=== PATIENT | female | born 1955 | race Asian ===

== ENCOUNTER 2023-11-29 17:24 | Emergency (ER) | payer OTHER, SELFPAY ==
[2023-11-29 17:34] VITALS: BP 114/67
[2023-11-29 17:53] LABS: % Basophils 0.6 % (0-2); % Eosinophils 9.3 % (0-6); % Lymphocytes 33.5 % (20.5-51.1); % Monocytes 7.6 % (1.7-9.3); Absolute Eosinophils 0.4 10^3/uL (0-0.7); Absolute Lymphocytes 1.6 10^3/uL (1.2-3.4); Absolute Monocytes 0.4 10^3/uL (0.1-0.6); Absolute Neutrophils 2.3 10^3/uL (1.4-6.5); Hemoglobin 12.5 g/dL (12.0-16.0); Mean Corp Hgb Conc. 32.1 g/dL (33.0-37.0); Mean Corpuscular Hgb 28.3 pg (27.0-31.0); Mean Corpuscular Volume 88.4 fL (81.0-99.0); Mean Platelet Volume 10.4 fL (7.4-10.4); Nucleated Red Blood Cells % 0 %; Platelet Count 141 10^3/uL (130-400); Red Blood Cell Count 4.41 10^6/uL (4.20-5.40); Red Cell Dist. Width 13.2 % (11.5-14.5); White Blood Cell Count 4.7 10^3/uL (4.8-10.8)
[2023-11-29 18:10] LABS: ALT (SGPT) 20 U/L (0-35); AST (SGOT) 35 U/L (14-36); Albumin 3.9 g/dl (3.5-5.0); Alkaline Phosphatase 69 U/L (38-126); Blood Urea Nitrogen 13 mg/dl (7-17); Carbon Dioxide 26 mmol/L (22-30); Chloride 105 mmol/L (98-107); Glucose 132 mg/dl (70-99); Potassium 3.8 mmol/L (3.5-5.1); Sodium 137 mmol/L (135-145); Total Bilirubin 0.7 mg/dl (0.2-1.3); Total Protein 7.1 g/dl (6.3-8.2); eGFR > 60.00
[2023-11-29 18:17] LABS: Troponin I < 0.012 ng/ml
[2023-11-29 21:45] LABS: INR 1.96; PT 22.5 Sec (11.4-14.6)
[2023-11-29 23:07] VITALS: BP 140/92
--- NOTE | 2023-11-29 23:56 | ED.GENMED ---
History of Present Illness
General
Chief Complaint: Cough
Source: patient and family
Exam Limitations: none
Time Seen by Provider: 11/29/23 20:31
Nursing documentation reviewed up to this point in time: agreed with
Travel History
Have you had any contact with someone who has COVID-19?: No
Do you have any symptoms of coronavirus? Fever > 100 degrees, chills, cough, shortness of breath, sore throat, loss of taste or smell, muscle aches, or headache?: No
History of Present Illness
History of Present Illness:
67-year-old female with past medical history of diabetes hypertension hyperlipidemia, valve disorder currently on Coumadin also history of A-fib presenting to the emergency department today with concerns of cough over the past week. Initially had
fevers but now has resolved sore throat initially now resolved. Denies specific chest pain other than occasionally with coughing.
Past History
Past History
ED Past Medical History: None
ED Past Surgical History: None
Review of Systems
Review of Systems
Allergies reviewed?: Yes
All Other Systems: ROS reviewed and negative except as documented in HPI and ROS
Phy Exam
Physical Exam
Physical Exam:
GENERAL: Alert , in no apparent distress
EYE: pupils equal and reactive
NECK: Supple, no significant adenopathy.
ENT: o/p clr, mmm.
CARDIAC: Regular rate and rhythm .
LUNGS: Clear breath sounds bilaterally, no acute respiratory distress, no wheezes/rales/rhonchi
ABDOMEN: Soft, without focal tenderness, no r/g, no cvat
NEUROLOGICAL: Alert and oriented, no focal neuro deficits
SKIN: Warm and dry, skin intact.
MUSCULOSKELETAL: No edema, well perfused.
PSYCH: Normal and appropriate interaction.
Course
Orders/Labs/Results
Orders:
Orders
11/29/23 17:36
Electrocardiogram (*1) Urgent
Reason for Study: Chest Pain
EKG- Treatment ONCE
11/29/23 17:47
Complete Blood Count/With Diff Urgent
Comprehensive Metabolic Panel Urgent
Troponin I Urgent
11/29/23 20:28
Chest [CR Chest - 2 Views ] Urgent
Comment:
Reason For Exam: cough
11/29/23 21:14
Add On- LAB Urgent
Tests Added?: pt inr
11/29/23 21:28
PT/INR [Prothrombin Time] Urgent
Abnormal Lab Results
11/29/23 11/29/23
17:47 21:28
WBC 4.7 L 10^3/uL
(4.8-10.8)
MCHC 32.1 L g/dL
(33.0-37.0)
Eosinophils % 9.3 H %
(0-6)
PT 22.5 H Sec
(11.4-14.6)
Glucose 132 H mg/dl
(70-99)
11/29/23 17:47
11/29/23 17:47
Vital Signs
Initial and Last Documented VS:
Initial Vital Signs
Temp Pulse Resp BP Pulse Ox
98.9 F 77 19 114/67 99
11/29/23 17:34 11/29/23 17:34 11/29/23 17:34 11/29/23 17:34 11/29/23 17:34
Last Documented Vital Signs
Temp Pulse Resp BP Pulse Ox
98.2 F 75 18 140/92 97
11/29/23 23:07 11/29/23 23:07 11/29/23 23:07 11/29/23 23:07 11/29/23 23:07
MDM/Problems Addressed
MDM/Problems Addressed:
67-year-old female presenting to the emergency department today with concerns of cough over the past week here vital signs are normal patient well-appearing no acute distress lungs are clear labs unremarkable chest x-ray without signs of pneumonia
EKG showing A-fib but does have a history of a flutter currently on Coumadin. INR level was 1.96 patient was notified of this will follow-up closely for further assessment and monitoring.
*Critical Care Note
Total Time (30-74mins, 75-104mins- exclusive of procedures): Not Applicable
ED Attending Note
-
Portions of this chart may have been created with voice recognition software.� Occasional wrong word or��sound alike� substitutions may have occurred due to the inherent limitations of voice recognition software.
Discharge Plan
Departure
Patient Disposition: Home (Routine Discharge)
Date of Disposition: 11/29/23
Time of Disposition: 23:56
Patient with high blood pressure during this ER visit?: No
Condition: Good
Covid-19: Not Applicable
Discharge Problem:
Acute bronchitis
Instructions: Acute Bronchitis, Adult (DC)
Prescriptions:
No Action
fluticasone propionate [Flonase Allergy Relief] 50 mcg/actuation spray,suspension
2 spray intranasal DAILY Qty: 16 0RF
Referrals:
Shania Villa [Other]
Laury Jose MD [Family Provider] -
Activity Restrictions/Additional Instructions:
You can to the emergency department today with concerns of ongoing cough.. Reassuring evaluation. Please follow close with the primary care doctor. Return to the emergency department for any worsening, new or concerning symptoms.
Interventions
Interventions:
*General Assessment Last Done: 11/29/23 17:35
ED- Fall Risk Assessment Last Done: 11/29/23 20:55
*ED COVID-19 Vaccine History Last Done: 11/29/23 17:35
ED- Pulmonary Assessment Last Done: 11/29/23 20:55
Discharge Date and Time
Print Language: CAMBODIAN
== END 2023-11-30 00:11 | disposition home or self-care (01) ==
LOC: EMR 17:24
PROVIDERS: Physician Assistant; Student in an Organized Health Care Education/Training Program; EMERGENCY PHYSICIAN Emergency Medicine; FAMILY PHYSICIAN Emergency Medicine
DX: J20.9 Acute bronchitis, unspecified (principal); E11.9 Type 2 diabetes mellitus without complications; I10 Essential (primary) hypertension; E78.5 Hyperlipidemia, unspecified; Z79.01 Long term (current) use of anticoagulants
CPT/HCPCS: 99285; 71046; 80053; 84484; 85025; 85610; 93005

== ENCOUNTER 2024-10-27 12:31 | Emergency (ER) | payer OTHER, SELFPAY ==
[2024-10-27 12:32] VITALS: BP 130/84
[2024-10-27 13:02] LABS: % Basophils 0.9 % (0-2); % Eosinophils 8.6 % (0-6); % Immature Granulocytes 0.1 % (0-0.5); % Lymphocytes 23.6 % (20.5-51.1); % Neutrophils 59.8 % (42.2-75.2); Absolute Basophils 0.1 10^3/uL (0-0.2); Absolute Eosinophils 0.6 10^3/uL (0-0.7); Absolute Lymphocytes 1.6 10^3/uL (1.2-3.4); Absolute Monocytes 0.5 10^3/uL (0.1-0.6); Hematocrit 41.6 % (37.0-47.0); Hemoglobin 13.7 g/dL (12.0-16.0); Mean Corp Hgb Conc. 32.9 g/dL (33.0-37.0); Mean Corpuscular Hgb 28.6 pg (27.0-31.0); Mean Corpuscular Volume 86.8 fL (81.0-99.0); Mean Platelet Volume 10.7 fL (7.4-10.4); Nucleated Red Blood Cells % 0 %; Platelet Count 218 10^3/uL (130-400); Red Blood Cell Count 4.79 10^6/uL (4.20-5.40); Red Cell Dist. Width 12.9 % (11.5-14.5); White Blood Cell Count 6.7 10^3/uL (4.8-10.8)
[2024-10-27 13:17] LABS: ALT (SGPT) 19 U/L (0-35); AST (SGOT) 32 U/L (14-36); Albumin 4.2 g/dl (3.5-5.0); Alkaline Phosphatase 87 U/L (38-126); Blood Urea Nitrogen 19 mg/dl (7-17); Calcium 9.4 mg/dl (8.4-10.2); Carbon Dioxide 26 mmol/L (22-30); Chloride 104 mmol/L (98-107); Glucose 99 mg/dl (70-99); Lipase 95 U/L (23-300); Potassium 4.4 mmol/L (3.5-5.1); Sodium 138 mmol/L (135-145); eGFR > 60.00
[2024-10-27 13:28] LABS: Troponin I < 0.012 ng/ml
--- NOTE | 2024-10-27 13:38 | ED.GENMED ---
History of Present Illness
General
Chief Complaint: Abdominal Symptoms
Source: patient and family
Time Seen by Provider: 10/27/24 13:08
History of Present Illness
History of Present Illness:
68-year-old female, Wolof speaking with translation done via patient's daughter (declined language line), who presents to the emergency department for evaluation of upper abdominal pain described to be centrally located, dull, nonradiating, worse
with eating and accompanied with mild fatigue and poor appetite. Patient has had multiple episodes over the course of 2 years, today seems a little bit different but patient is unable to quantify how it is different. She has not had any reported
nausea or vomiting and notes that she has taken some famotidine for the last 2 nights without much relief. Denies any chest pain or shortness of breath, no urinary symptoms or bowel changes. No other concerns at this time.
Past History
Past History
ED Past Medical History: Arrthythmia, HTN, Hypercholesterolemia, NIDDM and Valvular disease
ED Past Surgical History: Cardiac
Social History
Tobacco: Non-smoker
Alcohol: None
Drug: None
Personal:
Living: with family
Review of Systems
Review of Systems
All Other Systems: ROS reviewed and negative except as documented in HPI and ROS
Phy Exam
Physical Exam
Physical Exam:
GENERAL: Alert , in no apparent distress
EYE: clear conjunctiva b/l
HEAD: NCAT
ENT: mmm.
CARDIAC: Regular rate and rhythm .
LUNGS: Clear breath sounds bilaterally, no acute respiratory distress, no wheezes/rales/rhonchi
ABDOMEN: Soft, non-distended, without focal tenderness, no r/g, no cvat, negative Infante sign, no tenderness at McBurney's point
NEUROLOGICAL: Alert and oriented
SKIN: Warm and dry, skin intact.
MUSCULOSKELETAL: well perfused.
PSYCH: Normal and appropriate interaction.
Scores
Heart Failure Risk
Heart Failure Risk Score: Not Applicable
Heart Score for Chest Pain Patients
STEMI patient?: Not applicable
Withdrawal Assessment of Alcohol
Withdrawal Assessment Completed?: Not applicable
Course
Orders/Labs/Results
Orders:
Orders
10/27/24 12:37
Electrocardiogram (*1) Urgent
Reason for Study: Chest Pain
EKG- Treatment ONCE
10/27/24 12:47
Complete Blood Count/With Diff Urgent
Comprehensive Metabolic Panel Urgent
Lipase Urgent
Troponin I Urgent
10/27/24 13:28
Mag Hydrox/Al Hydrox/Simeth [Maalox] 30 ml Phenobarb/Hyoscy/Atropine/Scop [] 10 ml Viscous Lidocaine 2% [Xylocaine Viscous Cup] 10 ml PO NOW
US Abdomen Complete/Upper Urgent
Comment:
Reason For Exam: upper abd pain
10/27/24 13:49
Mag Hydrox/Al Hydrox/Simeth [Maalox] 30 ml .ROUTE .STK-MED ONE
Phenobarb/Hyoscy/Atropine/Scop [] 10 ml .ROUTE .STK-MED ONE
Viscous Lidocaine 2% [Xylocaine Viscous Cup] 15 ml .ROUTE .STK-MED ONE
Abnormal Lab Results
10/27/24
12:47
MCHC 32.9 L g/dL
(33.0-37.0)
MPV 10.7 H fL
(7.4-10.4)
Eosinophils % 8.6 H %
(0-6)
BUN 19 H mg/dl
(7-17)
10/27/24 12:47
10/27/24 12:47
Vital Signs
Initial and Last Documented VS:
Initial Vital Signs
Temp Pulse Resp BP Pulse Ox
97.6 F 78 20 130/84 100
10/27/24 12:32 10/27/24 12:32 10/27/24 12:32 10/27/24 12:32 10/27/24 12:32
Last Documented Vital Signs
Temp Pulse Resp BP Pulse Ox
97.6 F 78 20 130/84 100
10/27/24 12:32 10/27/24 12:32 10/27/24 12:32 10/27/24 12:32 10/27/24 12:32
MDM/Problems Addressed
Differential Diagnosis Includes:
GERD, gastritis, peptic ulcer disease, symptomatic cholelithiasis, cholecystitis, pancreatitis, atypical ACS presentation
MDM/Problems Addressed:
68-year-old female presenting to the emergency department for evaluation of upper abdominal discomfort over the last few days, worse when eating, no nausea or vomiting. Presently out pain. No focal tenderness on exam. Hemodynamically stable.
Will check labs, ultrasound and treat GI cocktail. EKG and troponin ordered given patient's cardiac history but there is no evidence for ischemia and patient does have a negative troponin. Reassessment following.
Chronic conditions affecting care: Arrhythmia
*Radiology
Radiology exam reviewed: radiology read reviewed
*Pulse Oximetry
Patient hypoxic: no
*EKG
Interpreted by ED Provider?: Yes
Heart Rate: 72
Rhythm: atrial flutter
Foster: normal axis
Ischemia: other (T wave inversions lateral leads)
*Critical Care Note
Total Time (30-74mins, 75-104mins- exclusive of procedures): Not Applicable
Data Reviewed
Review of Other/Old Records Reveals: Labs and Records
Patient Management
Escalation/DeEscalation of care consider admission/obs:
Patient's ultrasound shows cholelithiasis but no evidence for acute cholecystitis. She is afebrile, no leukocytosis, normal LFTs. Patient's symptoms improved at this time. I discussed these results with patient's daughter who again provided
translation. Encouraged low-fat diet, smaller meals. Provided with information for general surgery to follow-up with. Advised on return precautions to the ER. Stable for discharge home.
ED Attending Note
-
Portions of this chart may have been created with voice recognition software.� Occasional wrong word or��sound alike� substitutions may have occurred due to the inherent limitations of voice recognition software.
Discharge Plan
Departure
Patient Disposition: Home (Routine Discharge)
Date of Disposition: 10/27/24
Time of Disposition: 16:11
Patient with high blood pressure during this ER visit?: No
Discharge Problem:
Cholelithiasis
Instructions: Gallstones - Discharge instructions
Prescriptions:
No Action
fluticasone propionate [Flonase Allergy Relief] 50 mcg/actuation spray,suspension
2 spray intranasal DAILY Qty: 16 0RF
Referrals:
Laury Jose MD [Family Provider] -
Jay Jay Warner MD [Active] - (General Surgery - Call for appointment)
Interventions
Interventions:
*Risk Screen - Suicide Last Done: 10/27/24 12:32
*General Assessment Last Done: 10/27/24 12:32
NE-Udploc-Uuefdleseb Assessment Last Done: 10/27/24 13:57
Discharge Date and Time
Print Language: UZBEK
[2024-10-27] MEDS: MAALOX 50 PO (13:53)
== END 2024-10-27 16:24 | disposition home or self-care (01) ==
LOC: EMR 12:31
PROVIDERS: Emergency Medicine; EMERGENCY PHYSICIAN Student in an Organized Health Care Education/Training Program; FAMILY PHYSICIAN Emergency Medicine
DX: K80.20 Calculus of gallbladder without cholecystitis without obstruction (principal); I10 Essential (primary) hypertension; E78.00 Pure hypercholesterolemia, unspecified; E11.9 Type 2 diabetes mellitus without complications; I38 Endocarditis, valve unspecified
CPT/HCPCS: 99284; 76700; 80053; 83690; 84484; 85025; 93005

== ENCOUNTER 2024-12-09 11:15 | Emergency (ER) | payer OTHER, SELFPAY ==
[2024-12-09] VITALS (11 sets, daily range): BP systolic 97–154; BP diastolic 55–104
[2024-12-09 11:43] LABS: % Basophils 0.5 % (0-2); % Eosinophils 3.1 % (0-6); % Immature Granulocytes 0.5 % (0-0.5); % Lymphocytes 11.3 % (20.5-51.1); % Neutrophils 77.6 % (42.2-75.2); Absolute Basophils 0.1 10^3/uL (0-0.2); Absolute Eosinophils 0.3 10^3/uL (0-0.7); Absolute Immature Granulocytes 0.1 10^3/uL (0-0.05); Absolute Lymphocytes 1.2 10^3/uL (1.2-3.4); Absolute Monocytes 0.8 10^3/uL (0.1-0.6); Absolute Neutrophils 8.5 10^3/uL (1.4-6.5); Hematocrit 44.9 % (37.0-47.0); Hemoglobin 14.6 g/dL (12.0-16.0); Mean Corp Hgb Conc. 32.5 g/dL (33.0-37.0); Mean Corpuscular Hgb 28.8 pg (27.0-31.0); Mean Corpuscular Volume 88.6 fL (81.0-99.0); Nucleated Red Blood Cells % 0 %; Platelet Count 245 10^3/uL (130-400); Red Blood Cell Count 5.07 10^6/uL (4.20-5.40); Red Cell Dist. Width 13.2 % (11.5-14.5); White Blood Cell Count 10.9 10^3/uL (4.8-10.8)
[2024-12-09 11:55] LABS: INR 1.49; PT 18.3 Sec (11.4-14.6)
[2024-12-09 12:23] LABS: ALT (SGPT) 38 U/L (0-35); AST (SGOT) 40 U/L (14-36); Albumin 4.5 g/dl (3.5-5.0); Alkaline Phosphatase 110 U/L (38-126); Blood Urea Nitrogen 13 mg/dl (7-17); Calcium 9.9 mg/dl (8.4-10.2); Carbon Dioxide 26 mmol/L (22-30); Chloride 101 mmol/L (98-107); Estimated Creatinine Clearance 64 ml/min; Glucose 124 mg/dl (70-99); Lipase 79 U/L (23-300); Potassium 4.9 mmol/L (3.5-5.1); Sodium 139 mmol/L (135-145); Total Bilirubin 1.5 mg/dl (0.2-1.3); Total Protein 8.9 g/dl (6.3-8.2); eGFR > 60.00
[2024-12-09] MEDS: NSS 1000 IV (12:23)
--- NOTE | 2024-12-09 12:55 | ED.GENMED ---
History of Present Illness
General
Chief Complaint: Abdominal Pain
Source: patient and family (Patient's daughter at bedside who was assisting with translation)
Exam Limitations: none
Time Seen by Provider: 12/09/24 11:41
Nursing documentation reviewed up to this point in time: agreed with
History of Present Illness
History of Present Illness:
Patient is a 69-year-old female with history atrial fibrillation on warfarin, hypertension, hyperlipidemia, diabetes currently postop day 8 from cholecystectomy presenting to the emergency department with worsening abdominal pain. Patient's
daughter at bedside who lives with patient and is assisting with translation. She reports that surgery was performed at [facility] and was uncomplicated. Patient was recovering well until few days ago when her abdominal pain worsened. Patient
reports diffuse severe abdominal pain, now with mild shortness of breath. Patient denies any fever, chills, chest pain, or urinary symptoms. Patient has been dealing with constipation following surgery which she believes to be due to
Tylenol/Motrin. Her last bowel movement is 2 days ago.
Patient has not yet contacted her surgeon regarding this pain.
Past History
Past History
ED Past Medical History: Arrthythmia, HTN, Hypercholesterolemia, NIDDM and Valvular disease
ED Past Surgical History: Cardiac
Social History
Tobacco: Non-smoker
Alcohol: None
Drug: None
Personal:
Living: with family
Review of Systems
Review of Systems
Allergies reviewed?: Yes
All Other Systems: ROS reviewed and negative except as documented in HPI and ROS
Phy Exam
Physical Exam
Physical Exam:
Vitals: Hypertensive, otherwise vital signs stable. Afebrile
General: Patient is mildly uncomfortable due to pain.
Skin: Warm and dry, well-healing laparoscopic surgical scars on abdomen with surrounding ecchymoses
Head: Normocephalic, atraumatic
Eyes: Sclera nonicteric.
Throat: Protecting airway
Neck: Normal ROM
Cardiac: Regular rate and rhythm, no murmurs.
Pulm: Normal respiratory effort, no wheezes, rales, rhonchi heard on exam.
Abdomen: Mildly distended. Abdomen moderately tender diffusely, most significant in right upper quadrant with guarding.
Extremities: No evidence of cyanosis or edema. Palpable DP pulses
Neuro: AAOx3. Grossly intact.
Psychiatric: Normal affect.
Course
Orders/Labs/Results
Orders:
Orders
12/09/24 11:29
IV Insert/Care/Rem.- Treatment PRN
12/09/24 11:32
Complete Blood Count/With Diff Urgent
Comprehensive Metabolic Panel Urgent
Lipase Urgent
PT/INR [Prothrombin Time] Urgent
12/09/24 11:53
Electrocardiogram (*1) Urgent
Reason for Study: Shortness of Breath
EKG- Treatment ONCE
0.9% Sodium Chloride 1000 ml [Nss] 1,000 ml IV BOLUS
12/09/24 11:54
CR Chest - 2 Views Urgent
Comment:
Reason For Exam: SOB, abdominal pain
12/09/24 11:55
CT Abd/pelvis W Iv Cont Urgent
Comment: s/p CCY 12/01/24
Reason For Exam: Diffuse abdominal pain, +distention
12/09/24 12:33
Lactic Acid Q4H
Comment: CANCEL 2nd LACTIC ACID IF 1st LACTIC ACID IS LESS THAN 2
12/09/24 12:48
UA Reflex to Culture [Urinalysis Reflex To Culture] Urgent
Date Specimen was Collected: 12/09/24
Time Specimen was Collected: 12:46
12/09/24 14:50
Morphine Sulfate 4 mg IV NOW STA
Ondansetron Injectable [Zofran] 4 mg IV NOW STA
12/09/24 14:52
Morphine Sulfate 4 mg .ROUTE .STK-MED ONE
12/09/24 15:50
Acetaminophen 1000MG/100Ml [Ofirmev] 1,000 mg in 100 ml IV ONCE
Acetaminophen IV Indication:: Ileus/Delayed Bowel Func.
12/09/24 17:[address] Non Medication Order As Directed
Physician Order: Abdominal binder
12/09/24 18:57
Ondansetron Injectable [Zofran] 4 mg .ROUTE .STK-MED ONE
12/09/24 18:59
Ondansetron Injectable [Zofran] 4 mg IV NOW STA
12/09/24 23:21
Lactated Ringers [Lr] 1,000 ml IV BOLUS
12/09/24 23:52
Ondansetron Injectable [Zofran] 4 mg .ROUTE .STK-MED ONE
12/09/24 23:53
Ondansetron Injectable [Zofran] 4 mg IV NOW STA
Abnormal Lab Results
12/09/24 12/09/24
11:32 12:48
WBC 10.9 H 10^3/uL
(4.8-10.8)
MCHC 32.5 L g/dL
(33.0-37.0)
Abs Immat Gran (auto) 0.1 H 10^3/uL
(0-0.05)
Absolute Neuts (auto) 8.5 H 10^3/uL
(1.4-6.5)
Absolute Monos (auto) 0.8 H 10^3/uL
(0.1-0.6)
Neutrophils % 77.6 H %
(42.2-75.2)
Lymphocytes % 11.3 L %
(20.5-51.1)
PT 18.3 H Sec
(11.4-14.6)
Glucose 124 H mg/dl
(70-99)
Total Bilirubin 1.5 H mg/dl
(0.2-1.3)
AST 40 H U/L
(14-36)
ALT 38 H U/L
(0-35)
Total Protein 8.9 H g/dl
(6.3-8.2)
Urine Ketones 1+ A
(Negative)
12/09/24 11:32
12/09/24 11:32
Vital Signs
Initial and Last Documented VS:
Initial Vital Signs
Temp Pulse Resp BP
98.0 F 102 18 154/91
12/09/24 11:18 12/09/24 11:18 12/09/24 11:18 12/09/24 11:18
Last Documented Vital Signs
Temp Pulse Resp BP Pulse Ox
98.2 F 83 20 117/76 96
12/09/24 23:15 12/09/24 23:57 12/09/24 23:57 12/09/24 23:57 12/09/24 23:57
MDM/Problems Addressed
Differential Diagnosis Includes:
Not limited to: Constipation, ileus, bowel obstruction, intra-abdominal abscess, choledocholithiasis, etc.
MDM/Problems Addressed:
69-year-old female currently 8 days postop cholecystectomy presenting with worsening abdominal pain. No vomiting, fevers, urinary symptoms. Patient mildly tachycardic and hypertensive on arrival�she is afebrile. Physical exam as above. Patient
moderately uncomfortable due to pain. Abdomen is mildly distended although soft with diffuse tenderness and guarding. Tenderness most significant in right upper quadrant. Laparoscopic surgical incision appear to be well-healing with surrounding
ecchymoses although no erythema, warmth or signs of cellulitis. Differential broad at this time given recent surgery and worsening abdominal pain�concern for intra-abdominal infectious process. Other differentials include ileus, bowel obstruction,
hematoma, constipation, etc. Will check basic labs, lactic, coags as patient is on Coumadin. Will check urine and obtain CT abdomen/pelvis with IV contrast. Patient declines any analgesia at this time. Will give IV fluids.
Update 2:08 PM: Labs reviewed. Mild leukocytosis of 10.9. INR of 1.49 which is subtherapeutic. Chemistry with mild elevation in bilirubin, AST, ALT which may be secondary to recent cholecystectomy. Chest x-ray without acute findings. CT abdomen
pelvis shows large rectus sheath hematoma and postoperative ileus. No evidence of active extravasation. Hemoglobin is stable at 0.6. At this point�Case was discussed with general surgery as well as bhupendra who recommended discussion with [facility]
surgeon who performed operation. Patient now requesting pain medication.
Update 3:00 PM: Patient accepted at [facility] under service of Dr. Renteria for continued management. Spoke to PA at [facility] general surgery who recommended Tylenol, abdominal binder, ice. Discharge pending bed availability and transfer.
Update 8 PM: Patient's pain has improved. Abdomen remains soft although with localized tenderness of right upper quadrant (at site of hematoma). Patient remains hemodynamically stable. Fortunately�patient has received a bed at [facility] and will be
transferred there tonight around 11:30 PM. Discussed with patient and family who are comfortable with plan.
Chronic conditions affecting care:
Atrial fibrillation on Coumadin, hypertension
Acute Exacerbation and/or Progression of Chronic Illness:
Acutely hypertensive
*Radiology
Radiology exam reviewed: preliminary read by ED provider (Chest x-ray reviewed by me-no acute abnormalities) and radiology read reviewed
*Pulse Oximetry
Patient hypoxic: no
*EKG
Interpreted by ED Provider?: Yes
EKG Intrepretation Date: 12/09/24
Interpretation: abnormal
Comparison EKG: changes noted
Heart Rate: 103
Rate: tachycardiac
Rhythm: atrial flutter
Brock: normal axis
Interval: normal QT interval
QRS Pattern: normal QRS
Ischemia: non-specific ST changes
*Gang Hemstitching Machine Operator Interpretation
Rate: normal and tachycardiac
Interpretation: abnormal
Heart Rate: 96
Rhythm: sinus
*Critical Care Note
Total Time (30-74mins, 75-104mins- exclusive of procedures): Not Applicable
Patient Management
Discussion with other providers: [facility] (Case discussed with general surgery at [place] and general surgery at [facility])
Escalation/DeEscalation of care consider admission/obs:
Transfer to [facility]
ED Attending Note
-
Portions of this chart may have been created with voice recognition software.� Occasional wrong word or��sound alike� substitutions may have occurred due to the inherent limitations of voice recognition software.
Discharge Plan
Departure
Patient Disposition: Acute Care Hospital
Date of Disposition: 12/09/24
Time of Disposition: 16:19
Discharge Problem:
Rectus sheath hematoma, Postoperative ileus
Prescriptions:
No Action
fluticasone propionate [Flonase Allergy Relief] 50 mcg/actuation spray,suspension
2 spray intranasal DAILY Qty: 16 0RF
Referrals:
Laury Jose MD [Family Provider] -
Hospital Transfer
Other hospital: [facility]
I certify that the patient requires transfer: Yes
Discussed case with accepting physician: Dr. Renteria
Reason for transfer: continuity of care PCP
Interventions
Interventions:
*Risk Screen - Suicide Last Done: 12/09/24 13:00
*General Assessment Last Done: 12/09/24 11:39
*Neglect/Abuse Screening Last Done: 12/09/24 11:39
*ED- Fall Risk Assessment Last Done: 12/09/24 11:39
*ED COVID-19 Vaccine History Last Done: 12/09/24 11:39
*Nursing Disposition Last Done: 12/09/24 23:06
BX-Rwnhnm-Klcyfejqaq Assessment Last Done: 12/09/24 13:36
Discharge Date and Time
Print Language: ESTONIAN
[2024-12-09 13:04] LABS: Lactic Acid 1.1 mmol/L (0.7-2.0)
[2024-12-09 13:10] LABS: Urine Albumin Negative (Neg - Trace); Urine Bilirubin Negative (Negative); Urine Character Clear (Clear); Urine Color Yellow; Urine Glucose Negative (Negative); Urine Ketone 1+ (Negative); Urine Leukocyte Negative (Negative); Urine Nitrite Negative (Negative); Urine Occult Blood Negative (Negative); Urine Specific Gravity 1.015 (<1.030); Urine Urobilinogen Negative (Neg - 1+)
[2024-12-09] MEDS: MORPHINE SULFATE 4 MG IV (14:55)
[2024-12-09] MEDS: ZOFRAN 4 MG IV ×3 (14:55→23:53)
[2024-12-09] MEDS: OFIRMEV 100 IV (16:32)
[2024-12-09] MEDS: LR 1000 IV (23:23)
== END 2024-12-09 23:30 | disposition short-term general hospital (02) ==
LOC: EMR 11:15
PROVIDERS: Physician Assistant; EMERGENCY PHYSICIAN Student in an Organized Health Care Education/Training Program; FAMILY PHYSICIAN Emergency Medicine
DX: K91.89 Other postprocedural complications and disorders of digestive system (principal); S30.1XXA Contusion of abdominal wall, initial encounter; X58.XXXA Exposure to other specified factors, initial encounter; K56.7 Ileus, unspecified; I48.91 Unspecified atrial fibrillation; I10 Essential (primary) hypertension; Z79.01 Long term (current) use of anticoagulants; E78.00 Pure hypercholesterolemia, unspecified; Z90.49 Acquired absence of other specified parts of digestive tract
CPT/HCPCS: 96374; 96375; 96376; 96361; 99285; 71046; 74177; 80053; 81003; 83605; 83690; 85025; 85610; 93005; Q9967

== ENCOUNTER → 2024-12-17 12:12 | Outpatient (REF) | payer OTHER, SELFPAY | LOC: RAD 12:12 | PROVIDERS: ATTENDING PHYSICIAN Emergency Medicine | DX: M25.571 Pain in right ankle and joints of right foot (principal); M79.652 Pain in left thigh | CPT/HCPCS: 93970 ==

== ENCOUNTER → 2025-05-29 10:04 | Outpatient (REF) | payer MEDICARE, OTHER, SELFPAY | LOC: WDC 10:04 | PROVIDERS: ATTENDING PHYSICIAN Nurse Practitioner Family | DX: Z12.31 Encounter for screening mammogram for malignant neoplasm of breast (principal); M81.0 Age-related osteoporosis without current pathological fracture | CPT/HCPCS: 77063; 77067; 77080 ==